=== PATIENT | male | born 1955 ===

== ENCOUNTER 2023-10-08 05:44 | Observation (INO) ==
[2023-10-08] MEDS ORDERED: Lactated Ringers 1000 ml BAG 1,000 ML IV SCH (06:00)
[2023-10-08] MEDS ORDERED: Buffered Lidocaine 1% SYRIN 1 ml INTRADERM ONE (06:00)
[2023-10-08] MEDS ORDERED: Tranexamic Acid 1 GM/100ML BAG 2,000 MG/200 ML BAG IV ONE (06:09)
[2023-10-08] MEDS ORDERED: ceFAZolin 2 GM in NS PREMIX 2 GM/100 ML BAG IVPB ONE (06:09)
[2023-10-08 06:40] LABS: Rapid COVID-19 Molecular Undetected (Undetected)
[2023-10-08] MEDS ORDERED: Lidocaine 2% PF 5 ML VIAL ONE (07:22)
[2023-10-08] MEDS ORDERED: Phenylephrine IV 10 MG/ML 1 ml VIAL ONE (07:22)
[2023-10-08] MEDS ORDERED: Midazolam 2 mg/2 ml VIAL 1 mg/ml 2 ml VIAL (2 mg) ONE (07:27)
[2023-10-08] MEDS ORDERED: Bupivacaine-MPF SPINAL 7.5 MG/ML - 2ML AMP ONE (07:36)
[2023-10-08] MEDS ORDERED: Dexamethasone IV 4 MG/ML VIAL 1 ml VIAL ONE (08:03)
[2023-10-08] MEDS ORDERED: Ondansetron 4 mg VIAL 2 MG/ML 2 ml VIAL ONE (08:03)
[2023-10-08] MEDS ORDERED: HYDROmorphone 1 MG/1 ML SYRINGE IV PRN (08:23)
[2023-10-08] MEDS ORDERED: Prochlorperazine 5 mg/ml 2 ml VIAL (10 mg) IV PRN (08:23)
[2023-10-08] MEDS ORDERED: Acetaminophen IV 1 GM/100ML 1,000 MG/100 ML BAG IV PRN (08:23)
[2023-10-08] MEDS ORDERED: Ondansetron 4 mg VIAL 2 MG/ML 2 ml VIAL IV PRN ×2 (08:23→09:52)
[2023-10-08] MEDS ORDERED: Naloxone 0.4 mg VIAL 0.4 mg/ml 1 ml VIAL IV PRN (08:23)
[2023-10-08] MEDS ORDERED: fentaNYL 100 mcg/2 ml 50 MCG/ML VIAL IV PRN (08:23)
[2023-10-08] MEDS ORDERED: Propofol 10 MG/ML 20 ML BTL ONE (09:05)
[2023-10-08] MEDS ORDERED: Magnesium Hydroxide LIQ 30 ML UDC PO PRN (09:52)
[2023-10-08] MEDS ORDERED: Lactulose 30 ml UDC PO PRN (09:52)
[2023-10-08] MEDS ORDERED: Morphine 2 MG/ML SYRINGE IV PRN (09:52)
[2023-10-08] MEDS ORDERED: Ondansetron ODT 4 mg TAB 4 MG TAB PO PRN (09:52)
[2023-10-08] MEDS: Lactated Ringers 1000 ml BAG 1,000 ML IV SCH ×2 (12:01→22:01)
[2023-10-08] MEDS ORDERED: Albuterol HFA INHALER 8 gm MDI INH PRN (14:54)
[2023-10-08] MEDS: ceFAZolin 1 GM ADVAN 1 GM in NS 0.9% 50 ML 50 ML IVPB SCH (16:28)
[2023-10-08] MEDS: Mometasone/Formoter 200/5 MDI INH SCH (20:48)
[2023-10-08] MEDS: Magnesium Hydroxide LIQ 30 ML UDC PO SCH (21:05)
[2023-10-09] MEDS: ceFAZolin 1 GM ADVAN 1 GM in NS 0.9% 50 ML 50 ML IVPB SCH ×2 (00:18→08:01)
[2023-10-09 06:17] LABS: Platelet Count 286 10^3/uL (150-450)
[2023-10-09 06:33] LABS: Calcium 8.2 mg/dL (8.6-10.3); Creatinine, Serum 0.81 mg/dL (0.67-1.17); eGFR CKD-EPI 97.2 (>60)
[2023-10-09 06:54] LABS: Hematocrit 28.6 % (38-53); Hemoglobin 9.8 g/dL (13.2-16.3); Mean Platelet Volume 6.7 fL (7.5-11.2)
[2023-10-09] MEDS: Magnesium Hydroxide LIQ 30 ML UDC PO SCH (08:04)
[2023-10-09] MEDS ORDERED: Influenza vaccine *QUAD* *2023-24* 0.5 ML SYRINGE IM ONE (09:00)
[2023-10-09] MEDS ORDERED: Vitamin THERAPEUTIC TAB PO SCH (09:00)
[2023-10-09] MEDS ORDERED: SPIRIVA Respimat (tiotropium) 2.5 mcg/inh Inhaler INH SCH (09:00)
[2023-10-09] MEDS: Mometasone/Formoter 200/5 MDI INH SCH (09:36)
[2023-10-09 10:37] VITALS: BP 121/76
== END 2023-10-09 13:35 | disposition home or self-care (01) ==
LOC: SSU 05:44 → OR 05:44
PROVIDERS: ADMIT Orthopaedic Surgery Adult Reconstructive Orthopaedic Surgery; ATTEND Orthopaedic Surgery Adult Reconstructive Orthopaedic Surgery